=== PATIENT | male | born 1940 | race Caucasian/White ===

== ENCOUNTER 2017-02-24 08:01 | Outpatient (CLI) | payer MEDICARE ==
[2017-02-24 08:46] LABS: ALT (SGPT) 24 U/L (0-55); AST (SGOT) 26 U/L (5-34); Albumin 4.1 g/dL (3.4-4.8); Alkaline Phosphatase 73 U/L (40-150); Anion Gap 16 mmol/L (10-20); BUN (Urea Nitrogen) 40 mg/dL (8.4-25.7); Bilirubin, Direct 0.4 mg/dL (0.1-0.3); Calc. Creatinine Clearance 0 mL/min (70-130); Calcium 9.3 mg/dL (7.8-10.44); Carbon Dioxide 26 mmol/L (23-31); Cardiac Risk 3.4 (Less than 4.5); Chloride 107 mmol/L (98-107); Cholesterol 151 mg/dL (< 200 Desired); Estimated GFR-MDRD 53; Glucose 119 mg/dL (83-110); HDL Cholesterol 44 mg/dL (>60 Neg Risk); LDL Cholesterol, Calculated 89 mg/dL; Potassium 4.2 mmol/L (3.5-5.1); Sodium 145 mmol/L (136-145); Triglycerides 89 mg/dL (Less than 150)
== END 2017-02-24 08:02 | disposition home or self-care (01) ==
LOC: BURLAB 08:01
PROVIDERS: ATTEND Internal Medicine Cardiovascular Disease
DX: E78.2 Mixed hyperlipidemia (principal); E11.9 Type 2 diabetes mellitus without complications; N18.9 Chronic kidney disease, unspecified
CPT/HCPCS: 36415; 80048; 80061; 80076

== ENCOUNTER 2017-07-25 08:13 | Outpatient (CLI) | payer MEDICARE ==
[2017-07-25 09:31] LABS: ALT (SGPT) 23 U/L (8-55); AST (SGOT) 23 U/L (5-34); Albumin 3.9 g/dL (3.4-4.8); Alkaline Phosphatase 80 U/L (40-150); Bilirubin, Direct 0.3 mg/dL (0.1-0.3); Bilirubin, Total 0.8 mg/dL (0.2-1.2); Cardiac Risk 3.6 (Less than 4.5); Cholesterol 128 mg/dl (< 200 Desired); HDL Cholesterol 36 mg/dL (>60 Neg Risk); LDL Cholesterol, Calculated 76 mg/dL; Protein, Total 6.8 g/dL (5.8-8.1); Triglycerides 82 mg/dL (Less than 150)
[2017-07-25 10:18] LABS: Anion Gap 14 mmol/L (10-20); BUN (Urea Nitrogen) 32 mg/dL (8.4-25.7); Calc. Creatinine Clearance 0 mL/min (70-130); Calcium 9.5 mg/dL (7.8-10.44); Carbon Dioxide 26 mmol/L (23-31); Chloride 108 mmol/L (98-107); Estimated GFR-MDRD 54; Glucose 101 mg/dL (83-110); Potassium 4.3 mmol/L (3.5-5.1); Sodium 144 mmol/L (136-145)
== END 2017-07-25 08:14 | disposition home or self-care (01) ==
LOC: BURLAB 08:13
PROVIDERS: ATTEND Internal Medicine Cardiovascular Disease
DX: E78.2 Mixed hyperlipidemia (principal); E11.9 Type 2 diabetes mellitus without complications; I10 Essential (primary) hypertension
CPT/HCPCS: 36415; 80048; 80061; 80076

== ENCOUNTER 2018-04-29 17:18 | Emergency (ER) | payer MEDICARE ==
--- NOTE | 2018-04-29 23:08 | RAD ---
LEFT RIBS PA CHEST: Date: 04-29-18 Comparison: 02-27-14 FINDINGS: There has been no adverse interval change. Mild cardiomegaly is again the same as before. There are n o congestive changes or pleural effusions. The lungs are clear. No pneumothorax is seen. The AICD rem ains in place. Regarding the ribs, no definite rib fractures were appreciated. Very subtle ones might be missed on t his study. 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 IMPRESSION: No acute traumatic finding. POS: HOME
== END 2018-04-29 17:58 | disposition home or self-care (01) ==
LOC: BURERS 17:18
DX: S20.212A Contusion of left front wall of thorax, initial encounter (principal); S80.212A Abrasion, left knee, initial encounter; S00.81XA Abrasion of other part of head, initial encounter; E11.9 Type 2 diabetes mellitus without complications; I11.0 Hypertensive heart disease with heart failure; I50.9 Heart failure, unspecified; Z79.82 Long term (current) use of aspirin; Z79.899 Other long term (current) drug therapy; Z79.891 Long term (current) use of opiate analgesic; W01.0XXA Fall on same level from slipping, tripping and stumbling without subsequent striking against object, initial encounter

== ENCOUNTER 2021-06-19 14:07 | Emergency (ER) | payer MEDICARE ==
[2021-06-19] MEDS ORDERED: Clindamycin 150 MG CAP ONE (14:33)
== END 2021-06-19 14:40 | disposition home or self-care (01) ==
LOC: BURERS 14:07
DX: L03.116 Cellulitis of left lower limb (principal); I11.0 Hypertensive heart disease with heart failure; I50.9 Heart failure, unspecified; E11.9 Type 2 diabetes mellitus without complications
CPT/HCPCS: 99282

== ENCOUNTER 2022-06-25 11:31 | Emergency (ER) | payer MEDICARE ==
[2022-06-25] MEDS ORDERED: Bacitracin 1 PK ONE ×2 (12:08→12:09)
[2022-06-25] MEDS ORDERED: Boostrix 0.5 ML (Tdap) VIAL ONE ×2 (12:08→12:09)
== END 2022-06-25 12:32 | disposition home or self-care (01) ==
LOC: BURERS 11:31
DX: L03.115 Cellulitis of right lower limb (principal); I11.0 Hypertensive heart disease with heart failure; I50.9 Heart failure, unspecified; E11.9 Type 2 diabetes mellitus without complications
CPT/HCPCS: 90471; 90715

== ENCOUNTER 2022-11-05 06:48 | Emergency (ER) | payer MEDICARE | END 2022-11-05 07:40 | disposition home or self-care (01) | LOC: BURERS 06:48 | DX: J01.90 Acute sinusitis, unspecified (principal); J20.9 Acute bronchitis, unspecified; E11.9 Type 2 diabetes mellitus without complications; I11.0 Hypertensive heart disease with heart failure; I50.9 Heart failure, unspecified; Z79.899 Other long term (current) drug therapy; Z79.84 Long term (current) use of oral hypoglycemic drugs | CPT/HCPCS: 99283 ==

== ENCOUNTER 2024-08-15 18:36 | Emergency (ER) | payer MEDICARE ==
[2024-08-15 19:24] LABS: #Basophils 0.1 thou/uL (0.0-0.2); #Lymphocytes 0.3 thou/uL (1.20-3.40); #Monocytes 0.5 thou/uL (0.11-0.59); #Neutrophils 8.6 thou/uL (1.40-6.50); %Basophils 0.6 % (0.0-1.0); %Lymphocytes 3.3 % (21.0-51.0); %Monocytes 5.3 % (0.0-10.0); %Neutrophils 90.8 % (42.0-75.0); Hematocrit 42.9 % (42.0-52.0); Hemoglobin 13.1 g/dL (14.0-18.0); Mean Corpuscular HGB CONC 30.5 g/dL (32.0-36.0); Mean Corpuscular Hemoglobin 32.7 pg (27.0-31.0); Mean Platelet Volume 7.8 fL (7.4-10.4); Platelet Count 145 10x3/uL (130-400); RBC Distribution Width 13.1 % (11.5-14.5); White Blood Cell (WBC) Count 9.4 10x3/uL (4.8-10.8)
[2024-08-15 19:28] LABS: Bilirubin Small (Negative); Blood, Urine Large (Negative); Clarity Cloudy (Clear); Glucose, Urine (Dipstick) >=1000 mg/dL (Negative); Ketone, Urine Trace mg/dL (Negative); Leukocyte Trace (Negative); Nitrite Negative (Negative); Protein, Urine (Dipstick) 100 mg/dL (Neg-Trace); Specific Gravity, Urine 1.025 (1.005-1.030); Urobilinogen 0.2 mg/dL (Less than 2)
[2024-08-15 19:35] LABS: INR-International Normal Ratio 1.2; Prothrombin Time 14.8 sec (12.0-14.7)
[2024-08-15 19:36] LABS: Anion Gap 20 mmol/L (10-20); BUN (Urea Nitrogen) 47 mg/dL (8.4-25.7); Calc. Creatinine Clearance 0 mL/min (70-130); Calcium 9.1 mg/dL (7.8-10.44); Carbon Dioxide 20 mmol/L (23-31); Chloride 108 mmol/L (98-107); Estimated GFR 27; Glucose 192 mg/dL (83-110); PTT 30.4 sec (22.9-36.1); Potassium 4.8 mmol/L (3.5-5.1); Sodium 143 mmol/L (136-145)
[2024-08-15 19:40] LABS: MDiff Complete? YES; Macrocytosis SLIGHT = 6-15 cells (100X) (0-5/hpf); Platelet Adequacy Comment Appears Adequate
[2024-08-15 19:44] LABS: Bacteria/HPF 2+ HPF (None Seen); CAUTI Indications for Culture Dysuria,urgency,freq; RBC/HPF Greater than 50 HPF (0-3); Squamous Epithelial None Seen HPF (0-3)
[2024-08-15 19:45] LABS: Urine Culture Reflex No No
== END 2024-08-15 19:50 | disposition home or self-care (01) ==
LOC: BURERS 18:36
DX: E86.0 Dehydration (principal); I13.0 Hypertensive heart and chronic kidney disease with heart failure and stage 1 through stage 4 chronic kidney disease, or unspecified chronic kidney disease; E11.22 Type 2 diabetes mellitus with diabetic chronic kidney disease; N18.9 Chronic kidney disease, unspecified; I50.9 Heart failure, unspecified; R31.9 Hematuria, unspecified; Z95.0 Presence of cardiac pacemaker
CPT/HCPCS: 85610; 85730; 99283; 36415-59

== ENCOUNTER 2024-11-10 19:15 | Emergency (ER) | payer MEDICARE ==
[2024-11-10] MEDS ORDERED: Lidocaine 1% PF 5 ML VIAL ONE (19:54)
== END 2024-11-10 21:38 | disposition home or self-care (01) ==
LOC: BURERS 19:15
DX: S61.212A Laceration without foreign body of right middle finger without damage to nail, initial encounter (principal); S80.02XA Contusion of left knee, initial encounter; I11.0 Hypertensive heart disease with heart failure; I50.9 Heart failure, unspecified; E11.9 Type 2 diabetes mellitus without complications; Z95.0 Presence of cardiac pacemaker; W19.XXXA Unspecified fall, initial encounter; Y93.89 Activity, other specified
CPT/HCPCS: 12002; 99283

== ENCOUNTER 2024-12-15 11:21 | Emergency (ER) | payer MEDICARE | END 2024-12-15 11:52 | disposition home or self-care (01) | LOC: BURERS 11:21 | DX: S51.002A Unspecified open wound of left elbow, initial encounter (principal); S50.12XA Contusion of left forearm, initial encounter; I48.91 Unspecified atrial fibrillation; I11.0 Hypertensive heart disease with heart failure; I50.9 Heart failure, unspecified; E11.9 Type 2 diabetes mellitus without complications; W19.XXXA Unspecified fall, initial encounter; Z79.82 Long term (current) use of aspirin; Z95.0 Presence of cardiac pacemaker; Z79.01 Long term (current) use of anticoagulants; Z79.4 Long term (current) use of insulin; Z79.899 Other long term (current) drug therapy | CPT/HCPCS: 99283 ==

== ENCOUNTER 2025-09-20 15:04 | Emergency (ER) | payer MEDICARE | END 2025-09-20 16:13 | LOC: BURERS 15:04 | DX: M79.662 Pain in left lower leg (principal); I11.0 Hypertensive heart disease with heart failure; I50.9 Heart failure, unspecified; E11.9 Type 2 diabetes mellitus without complications; I48.91 Unspecified atrial fibrillation; Z79.4 Long term (current) use of insulin; Z79.84 Long term (current) use of oral hypoglycemic drugs; Z79.899 Other long term (current) drug therapy | CPT/HCPCS: 99284 ==